=== PATIENT | female | born 1995 | race Caucasian/White ===

== ENCOUNTER 2020-11-11 04:21 | Emergency (ER) | payer OTHER ==
[2020-11-11 04:41] VITALS: BP 125/67; PULSE 88; TEMP 98.5; BMI 28.9
== END 2020-11-11 06:22 | disposition home or self-care (01) ==
LOC: JER 04:21
DX: R07.9 Chest pain, unspecified (principal); F12.929 Cannabis use, unspecified with intoxication, unspecified
CPT/HCPCS: 71046-TC-FY; 93005; 93010; 99284-25